=== PATIENT | female | born 1985 | race Hispanic/Latino ===

== ENCOUNTER → 2023-04-03 14:28 | Outpatient (CLI) | payer OTHER, SELFPAY | PROVIDERS: Visit Provider Obstetrics & Gynecology | DX: O09.819 Supervision of pregnancy resulting from assisted reproductive technology, unspecified trimester; Z3A.12 12 weeks gestation of pregnancy | CPT/HCPCS: 87086 ==

== ENCOUNTER → 2023-04-03 14:54 | Outpatient (CLI) | payer OTHER, SELFPAY ==
[2023-04-03 15:27] LABS: Add Manual Diff / Slide Review NO; Basophils Absolute Auto 0 /uL (0-100); Basophils Percent Auto 0.5 % (0-2); Eosinophils Absolute Auto 100 /uL (0-450); Eosinophils Percent Auto 1.2 % (2-4); Hematocrit 38.7 % (36-46); Hemoglobin 13.8 g/dL (12.0-16.0); Lymphocytes Absolute Auto 1500 /uL (1100-4500); Lymphocytes Percent Auto 17.5 % (25-40); Mean Corpuscular HGB Conc 35.7 % (30-36); Mean Corpuscular Hemoglobin 31.9 PG (26-34); Mean Corpuscular Volume 89.5 fL (80-100); Monocytes Absolute Auto 500 /uL (0-900); Neutrophils Absolute Auto 6400 /uL (1500-7000); Neutrophils Percent Auto 74.8 % (50-75); Platelet Count 295 X10^3/uL (150-400); Red Blood Cell Count 4.32 X10^6/uL (4.0-5.2); Red Cell Distribution Width 12.7 % (11.6-14.8); White Blood Cell Count 8.6 X10^3/uL (4.5-11.0)
[2023-04-06 17:13] LABS: Hepatitis B Surface Antigen NEGATIVE s/c (NEGATIVE); Rubella Antibody IgG 5.9 IU/mL (>15)
[2023-04-07 03:37] LABS: RPR Screen Non Reactive (Non Reactive)
== END ==
PROVIDERS: Obstetrics & Gynecology; Referring Provider Obstetrics & Gynecology; Visit Provider Obstetrics & Gynecology
DX: O09.511 Supervision of elderly primigravida, first trimester (principal); O09.811 Supervision of pregnancy resulting from assisted reproductive technology, first trimester; Z3A.12 12 weeks gestation of pregnancy
CPT/HCPCS: 36415; 80055; 86850; 86900; 86901; 87086

== ENCOUNTER → 2023-05-12 11:15 | Outpatient (CLI) | payer OTHER, SELFPAY ==
--- NOTE | 2023-05-12 11:30 | DI.US.S_ITS ---
PROCEDURE: US OB LIMITED INDICATIONS: BLEEDING OUTSIDE/PRIOR DATING DATA: Last menstrual period (LMP): IVF. Estimated date of delivery (LIZZY) from first dating scan: October 13, 2023. TECHNIQUE: Real-time scanning was performed of the fetus, with image documentation. COMPARISON: None. FINDINGS: A single living intrauterine gestation is present. Presentation: Vertex Placenta: Placental position is posterior, without previa. The inferior margin of the placenta is 1.2 cm from the cervical os. Amniotic fluid index: 9.9 cm, normal range is 5-24 cm. Single deepest vertical pocket is 3.0 cm. heart rate: 145 beats per minute. Maternal cervical canal: 5.0 cm long. Normal lower limit is 2.5 cm. Multiple nabothian cysts are present within the endocervix. Clinically estimated gestational age: 18 weeks 0 days An anechoic fluid collection which measures 4.7 x 1.0 x 0.9 cm is present at the superior margin of the placenta. No internal vascularity. IMPRESSION: 1. Single live intrauterine gestation in vertex position. 2. Anechoic fluid collection at the superior margin of the placenta. By history, this was initially a twin . Findings may represent the remnant gestational sac. Small subchorionic hematoma in the setting of partial placental abruption cannot be excluded; however given the anechoic appearance of the fluid this is considered less likely. No retroplacental fluid visualized at this time. Dictated by: Liudmila Macdonald M.D. on 05/12/2023 at 12:30 Approved by: Liudmila Macdonald M.D. on 05/12/2023 at 13:26
== END ==
PROVIDERS: Referring Provider Obstetrics & Gynecology; Visit Provider Obstetrics & Gynecology
DX: O26.852 Spotting complicating pregnancy, second trimester (principal); Z3A.18 18 weeks gestation of pregnancy
CPT/HCPCS: 76815; 76817

== ENCOUNTER 2023-05-12 12:17 | Outpatient (CLI) | payer OTHER, SELFPAY | END 2023-05-12 13:00 | disposition home or self-care (01) | LOC: OB 05-22 11:48 | PROVIDERS: Referring Provider Obstetrics & Gynecology; Visit Provider Obstetrics & Gynecology | DX: O20.9 Hemorrhage in early pregnancy, unspecified (principal); O09.512 Supervision of elderly primigravida, second trimester; Z3A.18 18 weeks gestation of pregnancy; O26.852 Spotting complicating pregnancy, second trimester; Z34.02 Encounter for supervision of normal first pregnancy, second trimester | CPT/HCPCS: 59025; 76815; 76817; 87086; G0378; G0379 ==

== ENCOUNTER → 2023-05-12 13:25 | Outpatient (CLI) | payer OTHER, SELFPAY | PROVIDERS: Visit Provider Obstetrics & Gynecology | DX: Z34.02 Encounter for supervision of normal first pregnancy, second trimester (principal); Z3A.18 18 weeks gestation of pregnancy | CPT/HCPCS: 87086 ==

== ENCOUNTER → 2023-05-27 12:13 | Outpatient (CLI) | payer OTHER, SELFPAY ==
--- NOTE | 2023-05-27 12:13 | DI.US.S_ITS ---
PROCEDURE: US OB >= 14 WEEKS FETUS INDICATIONS: Anatomy scan OUTSIDE/PRIOR DATING DATA: Last menstrual period (LMP): IVF. LMP-based estimated date of delivery (LIZZY): 10/13/2019. TECHNIQUE: Real-time scanning was performed of the fetus, with image documentation and biometric measurements. COMPARISON: [facility], OB LIMITED, 05/12/2023, 11:25. FINDINGS: General: A single living intrauterine gestation is present. Presentation: Vertex. Placenta: Placental position is posterior , measuring 1.9 cm from the internal os. Amniotic fluid index: 12.9 cm, normal range is 5-24 cm. Single deepest vertical pocket is 4.8 cm. heart rate: 155 beats per minute. Maternal cervical canal: 6.9 cm long. Normal lower limit is 2.5 cm. biometrics: Biparietal diameter: 20 weeks 3 days Head circumference: 20 weeks 5 days Abdominal circumference: 21 weeks 2 days Femur length: 20 weeks 5 days Clinically estimated gestational age: 20 weeks 1 day Composite gestational age from present scan: 20 weeks 6 days Estimated weight and percentile: 393 g; 89% for gestational age Anatomic survey: Neuro: Ventricles are non-dilated at less than 10 mm. Cisterna magna is normal at 3-11 mm. Cerebellum is normal in size and morphology. Nuchal skin fold: Normal at less than 6 mm between 14-21 weeks gestational age. Face: Nose and lips, facial profile are normal. Spine: No evidence for spina bifida. Heart: 4-chambered heart is present, with normal ventricular outflow tracts. Diaphragm: Diaphragm is intact. Stomach: Left-sided stomach is present. Kidneys: No hydronephrosis. Normal is less than 5 mm in 2nd trimester, less than 7 mm in 3rd trimester. Cord: 3-vessel cord with insertion 1.4 cm from the placenta edge. Bladder: Normal in size. Extremities: All 4 extremities identified. Again noted is anechoic fluid collection in the superior right aspect the uterus measuring 2.7 x 2.1 x 0.6 cm (previously 4.7 x 1.0 x 0.9 cm. IMPRESSION: 1. A single living intrauterine gestation with appropriate interval growth. 2. Low-lying placenta measuring 1.9 cm from the internal os. Normal anatomic survey. 3. Marginal cord insertion to placenta measuring 1.4 cm from the placental edge. 4. Decrease in size of previously seen fluid collection. 5. anatomic survey demonstrates no anomaly. We strive to produce accurate, complete, and clear reports of imaging services. To assist us in improving patient care, this report was composed using standard report templates and voice recognition software. Therefore, it may contain abnormal punctuation, insertions and/or omissions. Occasional wrong-word or sound-alike substitutions may occur. Though we review the report and make efforts to correct it, we do recommend that the report be read carefully in proper context to recognize any text inaccuracies. Dictated by: Kylie Lee M.D. on 05/27/2023 at 21:50 Approved by: Kylie Lee M.D. on 05/28/2023 at 8:26
== END ==
PROVIDERS: Referring Provider Obstetrics & Gynecology; Visit Provider Obstetrics & Gynecology
DX: Z36.89 Encounter for other specified antenatal screening (principal); O44.42 Low lying placenta NOS or without hemorrhage, second trimester; Z3A.20 20 weeks gestation of pregnancy
CPT/HCPCS: 76811

== ENCOUNTER → 2023-06-22 11:42 | Outpatient (CLI) | payer OTHER, SELFPAY | PROVIDERS: Visit Provider Obstetrics & Gynecology | DX: R82.998 Other abnormal findings in urine (principal) | CPT/HCPCS: 87086 ==

== ENCOUNTER → 2023-07-14 11:35 | Outpatient (CLI) | payer OTHER, SELFPAY ==
[2023-07-14 13:58] LABS: Hematocrit 35.3 % (36-46); Hemoglobin 12.7 g/dL (12.0-16.0)
[2023-07-14 14:23] LABS: GTT (PREG) 1 Hour PP 50gm Dose 149 mg/dL (76-139)
== END ==
LOC: LAB 11:36
PROVIDERS: Referring Provider Obstetrics & Gynecology; Visit Provider Obstetrics & Gynecology
DX: Z34.02 Encounter for supervision of normal first pregnancy, second trimester (principal); Z3A.26 26 weeks gestation of pregnancy
CPT/HCPCS: 36415; 82950; 85014; 85018

== ENCOUNTER → 2023-07-20 08:00 | Outpatient (CLI) | payer OTHER, SELFPAY ==
[2023-07-20 10:33] LABS: Glucose Fasting Gestational 71 mg/dL (76-95)
[2023-07-20 10:40] LABS: Glucose 1 Hour Gest 132 mg/dL (76-180)
[2023-07-20 11:24] LABS: Glucose Tol Interp,Gestational INTERPRETATION
[2023-07-20 12:28] LABS: Glucose 3 Hour Gest 88 mg/dL (76-140)
[2023-07-20 20:00] LABS: Glucose 2 Hour Gest 145 mg/dL (76-155)
== END ==
PROVIDERS: Referring Provider Obstetrics & Gynecology; Visit Provider Obstetrics & Gynecology
DX: R73.09 Other abnormal glucose (principal); Z3A.23 23 weeks gestation of pregnancy
CPT/HCPCS: 36415; 82951; 82952

== ENCOUNTER 2023-09-16 09:08 | Outpatient (CLI) | payer OTHER, SELFPAY | END 2023-09-16 10:00 | disposition home or self-care (01) | LOC: OB 09-21 10:34 | PROVIDERS: Referring Provider Obstetrics & Gynecology; Visit Provider Obstetrics & Gynecology | DX: O46.93 Antepartum hemorrhage, unspecified, third trimester (principal); O09.513 Supervision of elderly primigravida, third trimester; O09.813 Supervision of pregnancy resulting from assisted reproductive technology, third trimester; Z3A.36 36 weeks gestation of pregnancy | CPT/HCPCS: 59025; G0378; G0379 ==

== ENCOUNTER → 2023-09-16 09:15 | Outpatient (CLI) | payer OTHER, SELFPAY ==
[2023-09-17 15:03] LABS: Strep Grp B PCR NEG for Grp B Strep
== END ==
PROVIDERS: Visit Provider Obstetrics & Gynecology
DX: O46.93 Antepartum hemorrhage, unspecified, third trimester (principal); O09.513 Supervision of elderly primigravida, third trimester; O09.813 Supervision of pregnancy resulting from assisted reproductive technology, third trimester; Z3A.36 36 weeks gestation of pregnancy
CPT/HCPCS: 59025; 87653

== ENCOUNTER 2023-09-22 10:48 | Outpatient (CLI) | payer OTHER, SELFPAY | END 2023-09-22 11:30 | disposition home or self-care (01) | LOC: LABOR 11:04 → OB 09-24 09:36 | PROVIDERS: Referring Provider Obstetrics & Gynecology; Visit Provider Obstetrics & Gynecology | DX: Z36.9 Encounter for antenatal screening, unspecified (principal) | CPT/HCPCS: 59025; G0378; G0379 ==

== ENCOUNTER 2023-09-29 08:30 | Outpatient (CLI) | payer OTHER, SELFPAY | END 2023-09-29 09:05 | disposition home or self-care (01) | LOC: LABOR 08:54 → OB 09-30 08:17 | PROVIDERS: Referring Provider Obstetrics & Gynecology; Visit Provider Obstetrics & Gynecology | DX: O46.93 Antepartum hemorrhage, unspecified, third trimester (principal); O09.513 Supervision of elderly primigravida, third trimester; O09.813 Supervision of pregnancy resulting from assisted reproductive technology, third trimester; Z3A.38 38 weeks gestation of pregnancy; R82.998 Other abnormal findings in urine | CPT/HCPCS: 59025; 87086; G0378; G0379 ==

== ENCOUNTER → 2023-09-29 11:11 | Outpatient (CLI) | payer OTHER, SELFPAY | PROVIDERS: Visit Provider Obstetrics & Gynecology | DX: R82.998 Other abnormal findings in urine (principal) | CPT/HCPCS: 87086 ==

== ENCOUNTER 2023-10-06 09:16 | Outpatient (CLI) | payer OTHER, SELFPAY | END 2023-10-06 09:53 | disposition home or self-care (01) | LOC: LABOR 09:35 → OB 10-08 14:01 | PROVIDERS: Referring Provider Obstetrics & Gynecology; Visit Provider Obstetrics & Gynecology | DX: O46.93 Antepartum hemorrhage, unspecified, third trimester (principal); O09.513 Supervision of elderly primigravida, third trimester; Z3A.39 39 weeks gestation of pregnancy | CPT/HCPCS: 59025; G0378; G0379 ==

== ENCOUNTER 2023-10-08 07:34 | Inpatient (IN) | payer OTHER, SELFPAY ==
[2023-10-08] MEDS: miSOPROStoL 25 MCG TABLET 50 MCG SL ×2 (09:54→13:54)
[2023-10-08 09:56] LABS: Add Manual Diff / Slide Review NO; Basophils Absolute Auto 0 /uL (0-100); Basophils Percent Auto 0.4 % (0-2); Eosinophils Absolute Auto 100 /uL (0-450); Eosinophils Percent Auto 0.7 % (2-4); Hematocrit 41.1 % (36-46); Hemoglobin 14.2 g/dL (12.0-16.0); Lymphocytes Absolute Auto 1400 /uL (1100-4500); Lymphocytes Percent Auto 16.9 % (25-40); Mean Corpuscular HGB Conc 34.5 % (30-36); Mean Corpuscular Hemoglobin 30.3 PG (26-34); Monocytes Absolute Auto 400 /uL (0-900); Monocytes Percent Auto 4.9 % (3-14); Neutrophils Absolute Auto 6300 /uL (1500-7000); Neutrophils Percent Auto 77.1 % (50-75); Platelet Count 251 X10^3/uL (150-400); Red Blood Cell Count 4.67 X10^6/uL (4.0-5.2); Red Cell Distribution Width 14.6 % (11.6-14.8); White Blood Cell Count 8.2 X10^3/uL (4.5-11.0)
[2023-10-08 10:44] VITALS: BP 119/69
--- NOTE | 2023-10-08 11:55 | PM.OBHP.1 ---
OB HPI Date/Time Date of admission: 10/08/23 Date Patient Seen: 10/08/23 Time Patient Seen: 08:45 History of Present Condition Chief complaint: IUP, 39+ 2 wks, AMA, IVF , GBS Neg : 1 Para: 0 Estimated Date of Delivery: 10/13/23 Estimated Gestational Age (weeks): 39+2 Narrative: Blanca Dhillon is a 37 year old primigravida admitted now at 39+ 2 weeks gestational age for labor induction due to advanced maternal age and the fact that this is a conceived by in vitro fertilization. Patient originally had a twin gestation but one of the gestations was nonviable while the other gestation has move forward with normal growth and development. 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 Patient's dating is solid and milestones have been appropriate throughout the course of her . She had an elevated 1 hour GDM screen but a completely normal 3 hour GTT. GBS is negative. Indications Indication for induction OB: other (Advanced maternal age, IVF ) History of Present care: good care Dating criteria: other (IVF implantation date consistent with LIZZY) Ultrasounds: normal 1st trimester US and normal mid trimester US Obstetrical complications: none Medical complications: none Preadmission Labs Blood type: A (+) positive -: Antibody screen: negative, GBS status: negative, HBsAG: negative, HIV: negative and RPR/VDLR: negative -: Chlamydia screen: detected and Gonorrhea screen: detected -: Rubella: not immune and Varicella: immune HCT: 41.1 HCAB: negative PAP: Normal Quad screen: Normal 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 1 hr GTT: 149 3 hr GTT: 1 hr (132), 2 hr (145) and 3 hr (88) Fasting blood glucose: 71 Prior (ies) History: Primigravida Evaluation Evaluation Baseline heart rate: 135 Variability: Moderate (11-25) monitor accelerations: Present Monitor Decelerations: Absent Contraction Frequency (minutes): 5 Uterine Contraction Intensity: Mild Category of Tracing: Reactive Status: Category l Dilation (cm): 1 Effacement (%): 85 Dilation: 1-2 cm Effacement: >/=80% station: -1 Position of cervix: mid Consistency: medium Mtz score: 8 PFSH Medical History (Updated 09/29/23 @ 09:33 by Teofilo Noel MD) Cervical polyp Left wrist fracture Hypothyroidism Anemia Infertility Surgical History (Updated 03/23/23 @ 08:12 by Sanjuana Hatfield, RN) [place] teeth extracted Family History (Updated 03/23/23 @ 08:19 by Sanjuana Hatfield, RN) Mother Diabetes mellitus Osteoarthritis Depression Grandmother Diabetes mellitus Father Alcoholism Heavy smoker Grandmother Diabetes mellitus Hypertension Grandfather No problems noted. 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) current occupational exposures/hazards: No yoselyn/jain: Yarsani travel history: recent (Domestic only) seatbelt use: always water heater temp set < 120 deg: Yes working smoke detector in home: Yes fire extinguisher in home: Yes carbon monox detector in home: Yes firearms in home: No do you feel safe at home: Yes Smoking Status: Never smoker second hand exposure: No alcohol intake: former (very occasionally when not ) substance use type: does not use during the past year weight has: other (very unstable r/t hormone therapy) well-balanced diet: daily or most days daily servings fruits/ve or more times/day caffeine: No (not since becoming d/t nausea) Type(s) of exercise: walking frequency: daily Meds Home Medications and Allergies Home Medications Medication Instructions Recorded Confirmed Type folic acid 1 mg tablet 1 mg PO DAILY 03/23/23 10/06/23 History vitamin-ferrous sulfate tab PO 03/23/23 10/06/23 History 27 mg iron-folic acid 0.8 mg tablet mvxhyipvsp-ipuhazeqtmubp-zrcgsgrf 2 tab PO Q4-6H PRN pain #30 tabs 04/03/23 10/06/23 Rx 50 mg-325 mg-40 mg tablet levothyroxine 75 mcg tablet 75 mcg PO DAILY #30 tabs 04/27/23 10/06/23 Rx Allergies Allergy/AdvReac Type Severity Reaction Status Date / Time No Known Drug Allergies Allergy Unverified 10/06/23 10:04 Review of Systems Review of Systems Narrative: Problem-specific ROS positives included in HPI OB Exam Vital signs Blood Pressure: 119/69 Pulse Rate: 88 Temperature: 96.1 F HENMT Head: normal to inspection, atraumatic and abrasion Eyes General: appearance normal, both eyes and all related structures Resp Effort & Inspection: normal respiratory effort and able to speak in complete sentences Auscultation: clear to auscultation bilaterally Cardio Rate: regular rate Rhythm: regular rhythm Heart Sounds: S1 normal, S2 normal and no murmurs GI Inspection: normal to inspection and incision (Surgical dressings clean and dry) Palpation: Yes soft, Yes no hepatosplenomegaly and Yes tender (Mild, diffuse postsurgical tenderness) External Female Exam: Yes other (No significant bleeding noted) Uterus Location (Fundal Height): 38 Presentation: vertex Estimated Weight (lbs): 8 Objective Labs 10/08/23 09:30 Labs: Laboratory Results - last 24 hr 10/08/23 09:30 WBC 8.2 RBC 4.67 Hgb 14.2 Hct 41.1 MCV 88.0 MCH 30.3 MCHC 34.5 RDW 14.6 Plt Count 251 Neut % (Auto) 77.1 H Lymph % (Auto) 16.9 L [place] % (Auto) 4.9 Eos % (Auto) 0.7 L Baso % (Auto) 0.4 Neut # (Auto) 6300 Lymph # (Auto) 1400 [place] # (Auto) 400 Eos # (Auto) 100 Baso # (Auto) 0 Blood Type A Positive Antibody Screen Negative Assessment and Plan Assessment and Plan Assessment and Plan narrative: ASSESSMENT 1. Intrauterine , 39+ 2 weeks gestational age 2. Advanced maternal age 3. conceived by in vitro fertilization 4. GBS negative status PLAN 1. Admit for cervical ripening and induction 2. See admission orders
[2023-10-08 17:09] VITALS: BP 119/69; PULSE 88; TEMP 35.6
--- NOTE | 2023-10-08 17:54 | PM.OBPNLAB ---
Date/Time Date Patient Seen: 10/08/23 Time Patient Seen: 17:54 Pain Control Pain control: tolerating well Pelvic Exam Dilation (cm): 1 Effacement (%): 95 station: -1 Amniotic membrane status: Intact Contractions Contractions on admission: irregular Monitor mode: External Contraction pattern: Irregular Contraction phase: Resting Contraction intensity: Mild Status status: Category l Heart Rate Baseline: 135 Monitor Accelerations: Present Monitor Decelerations: Absent Monitor Variability: Moderate Assessment and Plan Assessment: other (Ripening ongoing) Plan: continuous present management Comments: Will place cervidil overnight and reassess in AM if undelivered. Pitocin induction / augmentation once her cervix is more favorable.
[2023-10-08] MEDS: DINOPROSTONE VAG (CERVIDIL) 10 MG VAG (18:12)
[2023-10-08] MEDS: ZOLPIDEM 5 MG TABLET PO (18:18)
[2023-10-08] MEDS: ONDANSETRON 4 MG/2 ML INJ IV (20:57)
--- NOTE | 2023-10-08 22:36 | PM.AN.REGBLK ---
Regional Block Pre-procedure Procedure: Continuous Lumbar Epidural for L&D Attending OB provider: Teofilo Noel PMH/ROS narrative: 37 yo woman, 39 wk GA IVF in active labor requesting labor epidural for analgesia. See chart for details PSH/Anesthesia history narrative: not significant Exam narrative: good airway class 3, heart RRR, lungs clear ASA Class: II Labs: Hct 41.1 % (36-46) 10/08/23 09:30 Plt Count 251 X10^3/uL (150-400) 10/08/23 09:30 Medications: Current Medications Generic Name Dose Route Start Last Admin Trade Name Freq PRN Reason Stop Dose Admin Acetaminophen 650 mg 10/08/23 09:36 Acetaminophen 325 Mg Tablet PO Q6H PRN Fever/Mild Pain (1-3) Calcium Carbonate 1,000 mg 10/08/23 09:36 Calcium Carbonate 500 Mg Tab PO Q4HR PRN Dyspepsia Carboprost Tromethamine 250 mcg 10/08/23 09:31 Carboprost 250 Mcg/Ml Ampul IM Q90M PRN Bleeding Diphenhydramine HCl 25 mg 10/08/23 22:45 Diphenhydramine 50 Mg/Ml Vial IV 10/09/23 22:46 Q30MIN SERENA Diphenhydramine HCl 25 mg 10/08/23 22:33 Diphenhydramine 50 Mg/Ml Vial IV Q10M PRN Pruritis Ephedrine Sulfate 5 mg 10/08/23 22:33 Ephedrine 50 Mg/Ml Vial IV Q5M PRN Blood pressure decrease more than 20% of baseline. Fentanyl 50 mcg 10/08/23 09:36 Fentanyl 100 Mcg/2 Ml Inj IV Q1H PRN Pain, Moderate (4-6) Oxytocin/Lactated Ringer's 30 unit in 500 mls @ 200 mls/hr 10/08/23 09:31 Oxytocin Premix IV CONT PRN Bleeding Protocol Tranexamic Acid 1,000 mg/ 100 mls @ 200 mls/hr 10/08/23 09:31 Sodium Chloride IV NOW PRN Bleeding Oxytocin/Lactated Ringer's 30 unit in 500 mls @ 2 mls/hr 10/08/23 09:45 Oxytocin Premix IV TITRATE SERENA Protocol 2 MILLIUNIT/MIN Lactated Ringer's 1,000 mls @ 100 mls/hr 10/08/23 09:45 Lactated Ringers IV CONT [facility] Sodium Chloride 1,000 mls @ 100 mls/hr 10/08/23 22:45 Normal Saline 0.9% IV 10/09/23 22:32 CONT SERENA FENT 2MCG/ML BUPIV 0.125% EPI 200 mcg in 100 mls @ 6 mls/hr 10/08/23 22:45 Fentanyl/Bupiv/Ns 2mcg/Ml - 0.125% EPIDURAL CONT [facility] Lidocaine HCl 20 ml 10/08/23 09:31 Lidocaine 1% 20 Ml INJ INTRA-OP PRN Post Delivery Methylergonovine Maleate 0.2 mg 10/08/23 09:31 Methylergonovine 0.2 Mg Tablet PO Q6HR PRN Heavy Bleeding Methylergonovine Maleate 0.2 mg 10/08/23 09:31 Methylergonovine 0.2 Mg/Ml Vial IM NOW PRN Bleeding Metoclopramide HCl 10 mg 10/08/23 22:45 Metoclopramide 10 Mg/2 Ml Inj IV 10/09/23 22:46 Q30MIN [facility] Misoprostol 800 mcg 10/08/23 09:31 Misoprostol 200 Mcg Tablet TN NOW PRN Bleeding Misoprostol 400 mcg 10/08/23 09:31 Misoprostol 200 Mcg Tablet SL NOW PRN Bleeding Misoprostol 50 mcg 10/08/23 09:45 10/08/23 13:54 Misoprostol 25 Mcg Tablet SL 50 mcg Q4H SERENA Administration Nalbuphine HCl 5 mg 10/08/23 22:31 Nalbuphine 20 Mg/Ml Ampul IV Q6H PRN Pruritus Nalbuphine HCl 2.5 mg 10/08/23 22:33 Nalbuphine 20 Mg/Ml Ampul IV Q10M PRN Pruritis Naloxone HCl 0.2 mg 10/08/23 09:31 Naloxone 0.4 Mg/Ml Vial IV Q2MIN PRN Opiate Reversal Naloxone HCl 0.4 mg 10/08/23 22:31 Naloxone 0.4 Mg/Ml Vial IV Q2MIN PRN Opiate Reversal Naloxone HCl 0.1 mg 10/08/23 22:31 Naloxone 0.4 Mg/Ml Vial IV 10/08/23 22:32 NOW ONE Ondansetron HCl 4 mg 10/08/23 09:36 10/08/23 20:57 Ondansetron 4 Mg/2 Ml Inj IV 4 mg Q4HR PRN Administration Nausea And Vomiting Ondansetron HCl 4 mg 10/09/23 01:00 Ondansetron 4 Mg/2 Ml Inj IV 10/09/23 05:01 Q4HR SERENA Oxytocin 10 unit 10/08/23 09:31 Oxytocin 10 Unit/Ml Vial IM NOW PRN Bleeding Sodium Chloride 10 ml 10/08/23 21:00 Sodium Chloride 0.9% Flush IV BID SERENA Sodium Chloride 10 ml 10/08/23 09:31 Sodium Chloride 0.9% Flush IV PRN PRN Flush Sodium Chloride 10 ml 10/08/23 22:45 Sodium Chloride 0.9% Flush IV BID SERENA Sodium Chloride 10 ml 10/08/23 22:33 Sodium Chloride 0.9% Flush IV PRN PRN Flush Zolpidem Tartrate 5 mg 10/08/23 17:56 10/08/23 18:18 Zolpidem 5 Mg Tablet PO 5 mg BEDTIME PRN Administration Sleep Allergies: Allergies Allergy/AdvReac Type Severity Reaction Status Date / Time No Known Drug Allergies Allergy Unverified 10/06/23 10:04 Procedure Insertion date: 10/08/23 Insertion time: 22:08 Prep/Local: 1% lidocaine (chloroprep) Interspace: L3-4 Patient position: sitting Needle: 18 gauge [place] Loss of resistance with: saline KADEEM at (cm): 7 Catheter placed at SKIN (cm): 12 Catheter in SPACE (cm): 5 Insertion: No CSF, No Blood, No Paresthesia with insertion, No Paresthesia with injection and No Test dose reaction Initial Medications TEST DOSE time: 22:13 BOLUS DOSE time: 22:14 BOLUS DOSE (mL): 10 BOLUS DOSE med: 0.125% bupivacaine with fentanyl 10 mcg/mL Infusion INFUSION: 0.125% bupivacaine and with fentanyl 2 mcg/mL Initial rate (mL/hr): 10 Post-procedure Anesthesia date START: 10/08/23 Anesthesia time START: 22:08 Anesthesia date END: 10/08/23 Anesthesia time END: 23:46 Post-procedure Anesthesia Assessment: Yes CV function: HR/BP stable, Yes Resp function: RR/sat/airway adequate, Yes Post-op hydration adequate, Yes Pain control adequate, Yes Nausea & vomiting absent, Yes Temperature > 36 C, Yes Mental status appropriate and No Anesthesia complications
--- NOTE | 2023-10-09 00:16 | PM.OBPRVD ---
Events: Other (Abnormal quad screen) Labor & Delivery Delivery date: 10/09/23 Cervical ripening method: per misoprostal protocol Delivery monitor: external FHT and external uterine Route of delivery: Episiotomy description: None L&D Laceration Description: Perineal - 2nd Degree and Vaginal - 1st Degree Delivery repair: chromic Estimated blood loss (mL): 250 Anesthesia Type: Epidural Complications: None Narrative: Following a one hour 14 minute second stage, the patient delivered spontaneously over an intact perineum a viable male with Apgars of 8/8 , and weight of 3092 gms. (6 lbs. 13.1 oz.). No cord entanglement or shoulder dystocia was noted. was passed to the mother and skin to skin contact initiated immediately. Delayed cord clamping was also performed and once the umbilical cord was doubly clamped and cut, cord blood sample was obtained for routine studies. The placenta was then delivered with gentle cord traction suprapubic countertraction. Intravenous Pitocin was initiated immediately following delivery of the placenta and post delivery blood losses were quickly brought under control. The placenta was then inspected and found to be intact with a three-vessel cord. Inspection of the perineum showed a second-degree midline perineal laceration and a left-sided first-degree labial laceration. Both were repaired with 2-0 chromic in the usual fashion. Following delivery, the instrument, sponge, and needle count was all found to be correct with both mother and baby having tolerated the delivery process well. Baby 1: Infant gender: Male Presentation: vertex Position: Left Occiput Anterior Placenta delivery description: Spontaneous Cord Vessel Description: 3 Vessels score (1 min): 8 score (5 min): 8 weight: 6 lb 13.067 oz
[2023-10-09] MEDS: IBUPROFEN 600 MG TABLET PO ×4 (02:23→20:15)
[2023-10-09] MEDS: ACETAMINOPHEN 325 MG TABLET 650 MG PO ×4 (02:23→20:15)
[2023-10-09] MEDS: DERMOPLAST SPRAY 20% 60 ML 1 SPRAY TOP (02:23)
[2023-10-09] MEDS: LEVOTHYROXINE 75 MCG TABLET PO (08:05)
--- NOTE | 2023-10-09 17:22 | PM.OBPN.1 ---
Subjective - OB Subjective Patient comments: no complaints and pain well controlled baby status: doing well feeding status: exclusively breast feeding Narrative: Both mother and baby are doing extremely well. Unfortunately the baby has not yet urinated or had screening completed. Patient would like to be discharged this evening if possible but at this point has not met discharge criteria for her or the baby. Date Patient Seen: 10/09/23 Time Patient Seen: 17:23 Exam Const General: cooperative, healthy appearing and comfortable Nutritional Appearance: average body habitus Orientation: alert and oriented x3 HENMT Head: normal to inspection, normocephalic and atraumatic Eyes General: appearance normal, both eyes and all related structures Neck Neck: normal visual inspection Resp Effort & Inspection: normal respiratory effort and able to speak in complete sentences GI Inspection: normal to inspection Palpation: soft and no hepatosplenomegaly External Female Exam: other ( Minimal lochia) Uterus Location (Fundal Height): 20 Extrem Right lower extremity: normal to inspection; no edema Left lower extremity: normal to inspection; no edema Psych Appearance: grossly normal Mental Status: mental status grossly normal Speech and Movement: speech and movement normal Mood: congruent mood Affect: normal affect Attitude: cooperative Thought Process: normal Thought Content: normal Judgment: judgment good Objective Labs 10/08/23 09:30 Assessment & Plan Plan day: 0 plan OB: routine care Comments: Possible discharge later this evening if mother and baby both meet discharge criteria. Time Spent With Patient Time: Total time spent is greater than 50% in coordination of care (as documented) at patient's floor/unit and/or counseling patient: Time with patient: less than 15 minutes
--- NOTE | 2023-10-09 18:55 | P.DS_ITS ---
Discharge Providers Provider Date of admission: 10/08/23 07:34 Discharge Date: 10/09/23 Primary care physician: Mary Lou SHAFFER Provider Consults: 10/08/23 09:31 Consult to Anesthesiology Urgent Comment: Consulting Provider: Anesthesiologist Reason for consultation: Epidural Has provider been notified: No 10/10/23 00:24 Consult to Physiotherapy Practice Manager Routine Comment: Discharge provider: Kelly Levy MD Summary Hospital Course Date Patient Seen: 10/09/23 Time Patient Seen: 18:56 Diagnoses: s/p [facility] Hospital Course: 37yo G1 at 39+ 2 weeks gestational age for labor induction due to advanced maternal age and IVF . course c/b vanishing twin, abnormal cfDNA secondary to same, normal growth and development of surviving twin. Quad screen testing and all ultrasound imaging has been reassuring. Patient's dating is solid and milestones have been appropriate throughout the course of her . She had an elevated 1 hour GDM screen but a completely normal 3 hour GTT. GBS is negative./ Patient was admitted for overnight cervical ripening, normal progression of labor with pitocin augmentation. Uncomplicated second and third stage. Uncomplicated course, discharged to home on PPD1 per patient request, clearance provided per peds. Peripartum Data Infant Delivery Method: Natural Vaginal Laceration Description: Perineal - 2nd Degree and Vaginal - 1st Degree Episiotomy description: None complications: none 1: Gender: Male Disposition of : home Discharge Diagnosis (1) Vaginal delivery: Start Date: 10/09/23 Status: Acute Status at Discharge Cognitive/behavioral status at discharge: oriented Functional status at discharge: independent ambulation Overall status at discharge: patient is back to baseline Time Spent with Patient Time attestation: Total time spent providing and/or coordinating discharge services: Time spent: Less than 30 minutes Objective Labs 10/08/23 09:30 Discharge Plan Discharge Plan Patient Disposition: Home Provider Discharge Comment: Please review the written instructions you received when you were discharged from the hospital. Your follow-up appointment should be scheduled for 6 weeks after delivery and I look forward to seeing you then. If however in the meanwhile you have any issues, concern, or questions, please contact the office either by phone at [phone], or via the patient portal. Discharge orders & Medications Prescriptions: New acetaminophen 325 mg Tablet 650 mg PO Q6HR PRN (Reason: Pain, Mild (1-3)) Qty: 30 0RF Dermoplast (with menthol) 20-0.5 % Aerosol 1 spray topical Q1HR PRN (Reason: perineal pain) Qty: 56 2RF ibuprofen 600 mg Tablet 600 mg PO Q6HR PRN (Reason: Pain, Mild (1-3)) Qty: 90 0RF Purelan Cream 1 applic topical PRN PRN (Reason: Tenderness) Qty: 7 3RF Continued levothyroxine 75 mcg tablet 75 mcg PO DAILY Qty: 30 6RF fmhmlfvlsa-btchyfvwbtydp-hhtq 50-325-40 mg tablet 2 tab PO Q4-6H PRN (Reason: pain) Qty: 30 0RF Rx Instructions: do not exceed 6 tabs per 24 hrs vit-ferrous sulfat-FA 27 mg iron- 0.8 mg tablet 1 tab PO Discontinued folic acid 1 mg tablet 1 mg PO DAILY Follow up/Referrals: ProviderMary Lou [Primary Care Provider] - Teofilo Noel MD [Physician] - Discharge Health Status Multidrug resistant organism: No MDRO Diet/Activity/Treatments Diet: Regular Activity: As tolerated Other treatments: Iicl-vuy-tgzfjiv Tylenol and/or ibuprofen may be used for pain relief. Udcq-qhm-wxwawmv stool softeners and/or MiraLax may be used as needed for constipation. Skin/Wound/Dressing Care Report to your healthcare provider any signs of infection, such as:: chills, fever, increased pain, unusual drainage and unusual redness Dressing: N/A Visit Report/Discharge Packet Instructions: DI for Labor and Delivery, Vaginal , DI for and Nipple Soreness Discharge Data Primary Care Provider: ProviderMary Lou
== END 2023-10-09 20:20 | disposition home or self-care (01) | DRG 807 ==
PROVIDERS: Advanced Practice Midwife; Admitting Provider Obstetrics & Gynecology; Referring Provider Obstetrics & Gynecology; Visit Provider Obstetrics & Gynecology
DX: O70.1 Second degree perineal laceration during delivery (principal); Z37.0 Single live birth; O70.0 First degree perineal laceration during delivery; Z3A.39 39 weeks gestation of pregnancy
CPT/HCPCS: 36415; 59050; 59200; 59400; 85025; 86850; 86900; 86901; G0379; J2405